=== PATIENT | female | born 1935 | race Caucasian/White ===

== ENCOUNTER → 2016-04-27 | Outpatient (CLI) | payer MEDICARE, OTHER ==
[~2016-04-27] MED LIST: /WARF25TA OR; B VITAMIN PO; CENTRUM SILVER PO; COENZYME Q 10 PO; COZA100T2 PO; FELO2.5T PO; FISHCAP PO; GLUCOSAMINE PO; LEVOTHYROXINE PO; PERCOCET OR; TYLE325T5 PO; VITAMIN D PO; [UNRECOGNIZED DRUG - REMARK] PO
== END ==
LOC: M RAD 10:58
PROVIDERS: ATTEND Internal Medicine Medical Oncology
DX: Z12.31 Encounter for screening mammogram for malignant neoplasm of breast (principal)

== ENCOUNTER → 2016-05-25 | Outpatient (REF) | payer MEDICARE, OTHER ==
[2016-05-25 13:48] LABS: ALBUMIN 3.4 GM/DL (3.2-5.2); ALBUMIN/GLOBULIN RATIO 1.03 (1.00-1.93); ALKALINE PHOSPHATASE 68 U/L (45-117); ALT/SGPT 20 U/L (12-78); ANION GAP 10 MEQ/L (8-16); AST/SGOT 15 U/L (15-37); BILIRUBIN,TOTAL 0.6 MG/DL (0.2-1.0); BLOOD UREA NITROGEN 15 MG/DL (7-18); CALCIUM LEVEL 8.9 MG/DL (8.8-10.2); CARBON DIOXIDE LEVEL 26 MEQ/L (21-32); CHLORIDE LEVEL 109 MEQ/L (98-107); CHOLESTEROL LEVEL 154 MG/DL (<200); CREATININE FOR GFR 0.74 MG/DL (0.55-1.02); GLOMERULAR FILTRATION RATE > 60.0 (>39); GLUCOSE, FASTING 90 MG/DL (83-110); POTASSIUM SERUM 4.2 MEQ/L (3.5-5.1); SODIUM LEVEL 145 MEQ/L (136-145); TOTAL PROTEIN 6.7 GM/DL (6.4-8.2); TRIGLYCERIDES LEVEL 151 MG/DL (<150)
== END ==
LOC: M SFHCPLAZ 07:58
PROVIDERS: ATTEND Internal Medicine
DX: I10 Essential (primary) hypertension (principal); E78.00 Pure hypercholesterolemia, unspecified

== ENCOUNTER → 2016-12-17 | Outpatient (REF) | payer MEDICARE, OTHER ==
[2016-12-17 13:58] LABS: ALBUMIN 3.5 GM/DL (3.2-5.2); ALBUMIN/GLOBULIN RATIO 1.03 (1.00-1.93); ALKALINE PHOSPHATASE 73 U/L (45-117); ALT/SGPT 22 U/L (12-78); ANION GAP 9 MEQ/L (8-16); AST/SGOT 12 U/L (15-37); BILIRUBIN,TOTAL 0.5 MG/DL (0.2-1.0); BLOOD UREA NITROGEN 15 MG/DL (7-18); CALCIUM LEVEL 8.7 MG/DL (8.8-10.2); CARBON DIOXIDE LEVEL 25 MEQ/L (21-32); CHLORIDE LEVEL 110 MEQ/L (98-107); CHOLESTEROL LEVEL 174 MG/DL (<200); CREATININE FOR GFR 0.73 MG/DL (0.55-1.02); GLOMERULAR FILTRATION RATE > 60.0 (>39); GLUCOSE, FASTING 90 MG/DL (83-110); MAGNESIUM LEVEL 2.2 MG/DL (1.8-2.4); POTASSIUM SERUM 4.5 MEQ/L (3.5-5.1); SODIUM LEVEL 144 MEQ/L (136-145); TOTAL PROTEIN 6.9 GM/DL (6.4-8.2); TRIGLYCERIDES LEVEL 189 MG/DL (<150)
== END ==
LOC: M SFHCPLAZ 08:10
PROVIDERS: ATTEND Internal Medicine
DX: I10 Essential (primary) hypertension (principal); M19.90 Unspecified osteoarthritis, unspecified site; E78.00 Pure hypercholesterolemia, unspecified; E03.9 Hypothyroidism, unspecified

== ENCOUNTER → 2017-05-03 | Outpatient (CLI) | payer MEDICARE, OTHER | LOC: M RAD 11:14 | DX: Z12.31 Encounter for screening mammogram for malignant neoplasm of breast (principal); Z85.3 Personal history of malignant neoplasm of breast | CPT/HCPCS: 77067 ==

== ENCOUNTER → 2017-06-16 | Outpatient (REF) | payer MEDICARE, OTHER ==
[2017-06-16 12:39] LABS: HEMATOCRIT 39.6 % (36.0-47.0); HEMOGLOBIN 13.3 g/dl (12.0-16.0); MEAN CORPUSCULAR HEMOGLOBIN 29.8 pg (27.0-33.0); MEAN CORPUSCULAR HGB CONC 33.6 g/dl (32.0-36.5); MEAN CORPUSCULAR VOLUME 88.6 fl (80.0-96.0); PLATELET COUNT, AUTOMATED 237 10^3/uL (150-450); RED BLOOD COUNT 4.47 10^6/uL (4.00-5.40); RED CELL DISTRIBUTION WIDTH 12.5 % (11.5-14.5)
[2017-06-16 13:17] LABS: ALBUMIN/GLOBULIN RATIO 1.25 (1.00-1.93); ALKALINE PHOSPHATASE 67 U/L (45-117); ALT/SGPT 31 U/L (12-78); ANION GAP 7 MEQ/L (8-16); AST/SGOT 34 U/L (7-37); BILIRUBIN,TOTAL 0.5 MG/DL (0.2-1.0); BLOOD UREA NITROGEN 17 MG/DL (7-18); CALCIUM LEVEL 8.9 MG/DL (8.8-10.2); CARBON DIOXIDE LEVEL 30 MEQ/L (21-32); CHLORIDE LEVEL 99 MEQ/L (98-107); CREATININE FOR GFR 1.07 MG/DL (0.55-1.30); GLOMERULAR FILTRATION RATE 52.7 (>39); GLUCOSE, FASTING 81 MG/DL (70-100); MAGNESIUM LEVEL 2.5 MG/DL (1.8-2.4); POTASSIUM SERUM 4.5 MEQ/L (3.5-5.1); SODIUM LEVEL 136 MEQ/L (136-145); TOTAL PROTEIN 7.2 GM/DL (6.4-8.2); URIC ACID 4.1 MG/DL (2.6-6.0)
== END ==
LOC: M SFHCPLAZ 10:23
DX: J30.9 Allergic rhinitis, unspecified (principal); I10 Essential (primary) hypertension
CPT/HCPCS: 83735

== ENCOUNTER → 2017-12-20 | Outpatient (REF) | payer MEDICARE, OTHER ==
[2017-12-20 20:14] LABS: ALBUMIN 3.8 GM/DL (3.2-5.2); ALKALINE PHOSPHATASE 69 U/L (45-117); ALT/SGPT 21 U/L (12-78); ANION GAP 6 MEQ/L (8-16); AST/SGOT 14 U/L (7-37); BILIRUBIN,TOTAL 0.6 MG/DL (0.2-1.0); BLOOD UREA NITROGEN 18 MG/DL (7-18); CALCIUM LEVEL 9.5 MG/DL (8.8-10.2); CARBON DIOXIDE LEVEL 27 MEQ/L (21-32); CHLORIDE LEVEL 109 MEQ/L (98-107); CREATININE FOR GFR 0.84 MG/DL (0.55-1.30); GLOMERULAR FILTRATION RATE > 60.0 (>32); LDL CHOLESTEROL 96 MG/DL (<100); MAGNESIUM LEVEL 2.4 MG/DL (1.8-2.4); POTASSIUM SERUM 4.8 MEQ/L (3.5-5.1); SODIUM LEVEL 142 MEQ/L (136-145); TOTAL PROTEIN 7.2 GM/DL (6.4-8.2); TRIGLYCERIDES LEVEL 162 MG/DL (<150)
[2017-12-21 02:53] LABS: ALBUMIN/GLOBULIN RATIO 1.12 (1.00-1.93); CHOLESTEROL LEVEL 168 MG/DL (<200); HDL CHOLESTEROL 40 MG/DL (>40); NON-HDL-C 128 MG/DL
[2017-12-21 03:01] LABS: GLUCOSE, FASTING 87 MG/DL (70-100)
== END ==
LOC: M SFHCPLAZ 09:40
DX: I10 Essential (primary) hypertension (principal); E78.00 Pure hypercholesterolemia, unspecified; E03.9 Hypothyroidism, unspecified
CPT/HCPCS: 83735

== ENCOUNTER → 2018-07-14 | Outpatient (REF) | payer MEDICARE, OTHER ==
[~2018-07-14] MED LIST changes: -/WARF25TA OR; +COUM1TAB18 OR; +OXYC1TAB23 OR; -PERCOCET OR
[2018-07-14 11:48] LABS: HEMATOCRIT 39.8 % (36.0-47.0); HEMOGLOBIN 12.7 g/dl (12.0-15.5); MEAN CORPUSCULAR HEMOGLOBIN 29.1 pg (27.0-33.0); MEAN CORPUSCULAR HGB CONC 31.9 g/dl (32.0-36.5); MEAN CORPUSCULAR VOLUME 91.3 fl (80.0-96.0); PLATELET COUNT, AUTOMATED 246 10^3/uL (150-450); RED BLOOD COUNT 4.36 10^6/uL (4.00-5.40); WHITE BLOOD COUNT 5.8 10^3/uL (4.0-10.0)
[2018-07-14 12:33] LABS: ALBUMIN 3.7 GM/DL (3.2-5.2); ALT/SGPT 18 U/L (12-78); BILIRUBIN,TOTAL 0.6 MG/DL (0.2-1.0); BLOOD UREA NITROGEN 17 MG/DL (7-18); CALCIUM LEVEL 8.7 MG/DL (8.8-10.2); CARBON DIOXIDE LEVEL 28 MEQ/L (21-32); CHLORIDE LEVEL 109 MEQ/L (98-107); CREATININE FOR GFR 0.69 MG/DL (0.55-1.30); GLOMERULAR FILTRATION RATE > 60.0 (>32); GLUCOSE, FASTING 89 MG/DL (70-100); MAGNESIUM LEVEL 2.1 MG/DL (1.8-2.4); SODIUM LEVEL 143 MEQ/L (136-145); TOTAL PROTEIN 7.2 GM/DL (6.4-8.2)
== END ==
LOC: M SFHCPLAZ 07:58
PROVIDERS: ATTEND Internal Medicine
DX: I10 Essential (primary) hypertension (principal); Z85.3 Personal history of malignant neoplasm of breast

== ENCOUNTER → 2021-01-06 | Outpatient (CLI) | payer MEDICARE, OTHER ==
[2021-01-06 13:37] LABS: HEMATOCRIT 40.6 % (36.0-47.0); MEAN CORPUSCULAR HEMOGLOBIN 29.7 pg (27.0-33.0); MEAN CORPUSCULAR VOLUME 92.9 fl (80.0-96.0); PLATELET COUNT, AUTOMATED 267 10^3/uL (150-450); RED BLOOD COUNT 4.37 10^6/uL (4.00-5.40); WHITE BLOOD COUNT 5.5 10^3/uL (4.0-10.0)
[2021-01-06 14:19] LABS: ALBUMIN 3.4 GM/DL (3.2-5.2); ALT/SGPT 17 U/L (12-78); BILIRUBIN,TOTAL 0.5 MG/DL (0.2-1.0); BLOOD UREA NITROGEN 16 MG/DL (7-18); CALCIUM LEVEL 9.4 MG/DL (8.8-10.2); CARBON DIOXIDE LEVEL 28 MEQ/L (21-32); CHLORIDE LEVEL 112 MEQ/L (98-107); CHOLESTEROL LEVEL 168 MG/DL (<200); CHOLESTEROL RISK RATIO 3.818 (<5); CREATININE FOR GFR 0.79 MG/DL (0.55-1.30); GLOMERULAR FILTRATION RATE > 60.0 (>32); GLUCOSE, FASTING 92 MG/DL (70-100); HDL CHOLESTEROL 44 MG/DL (>40); LDL CHOLESTEROL 93 MG/DL (<100); NON-HDL-C 124 MG/DL; POTASSIUM SERUM 4.4 MEQ/L (3.5-5.1); SODIUM LEVEL 144 MEQ/L (136-145); TRIGLYCERIDES LEVEL 155 MG/DL (<150)
== END ==
LOC: M PLALAB 09:20
PROVIDERS: ATTEND Internal Medicine
DX: I10 Essential (primary) hypertension (principal); E03.9 Hypothyroidism, unspecified; E78.00 Pure hypercholesterolemia, unspecified; Z85.3 Personal history of malignant neoplasm of breast

== ENCOUNTER → 2021-12-03 | Outpatient (CLI) | payer MEDICARE, OTHER ==
[2021-12-03 14:01] LABS: HEMATOCRIT 39.3 % (36.0-47.0); HEMOGLOBIN 12.8 g/dl (12.0-15.5); MEAN CORPUSCULAR HEMOGLOBIN 30.3 pg (27.0-33.0); MEAN CORPUSCULAR HGB CONC 32.6 g/dl (32.0-36.5); MEAN CORPUSCULAR VOLUME 93.1 fl (80.0-96.0); PLATELET COUNT, AUTOMATED 236 10^3/uL (150-450); RED BLOOD COUNT 4.22 10^6/uL (4.00-5.40); WHITE BLOOD COUNT 5.6 10^3/uL (4.0-10.0)
[2021-12-03 14:22] LABS: ALBUMIN 3.4 GM/DL (3.2-5.2); ALT/SGPT 18 U/L (12-78); BILIRUBIN,TOTAL 0.6 MG/DL (0.2-1.0); BLOOD UREA NITROGEN 18 MG/DL (7-18); CARBON DIOXIDE LEVEL 26 MEQ/L (21-32); CHLORIDE LEVEL 107 MEQ/L (98-107); CREATININE FOR GFR 0.81 MG/DL (0.55-1.30); GLOMERULAR FILTRATION RATE > 60.0 (>32); GLUCOSE, FASTING 100 MG/DL (70-100); POTASSIUM SERUM 5.2 MEQ/L (3.5-5.1); SODIUM LEVEL 138 MEQ/L (136-145); TOTAL PROTEIN 6.8 GM/DL (6.4-8.2)
[2021-12-03 14:48] LABS: MALB URINE SIEMENS 32.4 MG/L
[2021-12-03 15:59] LABS: HEMOGLOBIN A1c 5.5 %
== END ==
LOC: M PLALAB 10:29
PROVIDERS: ATTEND Internal Medicine Hematology
DX: I10 Essential (primary) hypertension (principal); M79.674 Pain in right toe(s)

== ENCOUNTER → 2023-08-11 | Outpatient (CLI) | payer MEDICARE ==
[2023-08-11 11:13] LABS: BASO # 0.1 10^3/uL (0.0-0.2); EOS # 0.2 10^3/uL (0.0-0.5); EOS % 2.8 % (0.0-3.0); HEMATOCRIT 40.2 % (36.0-47.0); LYMPH # 2.6 10^3/uL (1.5-5.0); LYMPH % 41.7 % (24.0-44.0); MEAN CORPUSCULAR HGB CONC 32.3 g/dl (32.0-36.5); MEAN CORPUSCULAR VOLUME 92.6 fl (80.0-96.0); MONO # 0.5 10^3/uL (0.0-0.8); MONO % 8.4 % (2.0-8.0); NEUTROPHILS # 2.8 10^3/uL (1.5-8.5); NEUTROPHILS % 45.8 % (36.0-66.0); PLATELET COUNT, AUTOMATED 273 10^3/uL (150-450); RED BLOOD COUNT 4.34 10^6/uL (4.00-5.40); WHITE BLOOD COUNT 6.2 10^3/uL (4.0-10.0)
[2023-08-11 11:34] LABS: C REACTIVE PROTEIN QUANTITATIV < 0.40 MG/DL (<1.0); CREATININE, URINE 131.1 MG/DL; MAU/CREAT RATIO 12.2 MCG/MG (0.0-30.0)
[2023-08-11 11:36] LABS: ALBUMIN 3.4 G/DL (3.2-5.2); ALKALINE PHOSPHATASE 65 U/L (46-116); ALT/SGPT 13 U/L (7.0-40); AST/SGOT 16 U/L (<34); BILIRUBIN,TOTAL 0.5 MG/DL (0.3-1.2); BLOOD UREA NITROGEN 16 MG/DL (9-23); CALCIUM LEVEL 8.8 MG/DL (8.3-10.6); CARBON DIOXIDE LEVEL 27 MMOL/L (20-31); CHLORIDE LEVEL 109 MMOL/L (98-107); CHOLESTEROL LEVEL 176 MG/DL (<200); CHOLESTEROL RISK RATIO 4.11 (<5); CREATININE FOR GFR 0.82 MG/DL (0.55-1.30); GLOMERULAR FILTRATION RATE > 60.0 (>32); GLUCOSE, FASTING 92 MG/DL (74-106); HDL CHOLESTEROL 42.8 MG/DL (>40); LDL CHOLESTEROL 106.8 MG/DL (<100); NON-HDL-C 133.2 MG/DL; POTASSIUM SERUM 4.6 MMOL/L (3.5-5.1); SODIUM LEVEL 140 MMOL/L (136-145); TOTAL PROTEIN 6.6 G/DL (5.7-8.2); TRIGLYCERIDES LEVEL 132 MG/DL (<150)
[2023-08-11 11:37] LABS: THYROID STIMULATING HORMONE 7.453 uIU/ML (0.55-4.78); TOTAL 25(OH) VITAMIN D 32.3 NG/ML (20.0-100.0)
[2023-08-11 11:38] LABS: FREE T4 1.11 NG/DL (0.89-1.76); HEMOGLOBIN A1c 5.2 % (4.0-6.0); VITAMIN B12 LEVEL 349 PG/ML (211-911)
== END ==
LOC: M PLALAB 08:37
PROVIDERS: ATTEND Internal Medicine Hematology
DX: I10 Essential (primary) hypertension (principal); Z79.899 Other long term (current) drug therapy

== ENCOUNTER 2023-12-22 16:15 | Inpatient (IN) | payer MEDICARE, OTHER ==
[~2023-12-22] VITALS: Ht 175.3 cm; Wt 85.1 kg
[2023-12-22 16:53] LABS: VENOUS BASE EXCESS -7.3 (-2.0-2.0); VENOUS HCO3 16.5 MMOL/L (23.0-27.0); VENOUS O2 SATURATION 66.9 % (60.0-80.0); VENOUS PH 7.374 UNITS (7.330-7.430); VENOUS TOTAL CO2 17.4 MMOL/L (24.0-28.0)
[2023-12-22 17:01] LABS: HEMATOCRIT 35.4 % (36.0-47.0); HEMOGLOBIN 12.2 g/dl (12.0-15.5); MEAN CORPUSCULAR HEMOGLOBIN 29.8 pg (27.0-33.0); MEAN CORPUSCULAR HGB CONC 34.5 g/dl (32.0-36.5); MEAN CORPUSCULAR VOLUME 86.6 fl (80.0-96.0); PLATELET COUNT, AUTOMATED 135 10^3/uL (150-450); RED BLOOD COUNT 4.09 10^6/uL (4.00-5.40); WHITE BLOOD COUNT 24.5 10^3/uL (4.0-10.0)
[2023-12-22] MEDS: ACETAMINOPHEN 650MG SUPP PR ONE (17:05)
[2023-12-22] MEDS: NS 1,000 ML IV ONE (17:06)
[2023-12-22] MEDS: NS IV ONE (17:15)
[2023-12-22] MEDS: LevoFLOXacin IV 750 MG in IV 1 EA IV ONE (17:19)
[2023-12-22 17:28] LABS: AMYLASE 25 U/L (30-118)
[2023-12-22 17:29] LABS: ALBUMIN 2.3 G/DL (3.2-5.2); ALKALINE PHOSPHATASE 86 U/L (46-116); ALT/SGPT 32 U/L (7.0-40); AST/SGOT 56 U/L (<34); BILIRUBIN,DIRECT 0.8 MG/DL (<0.4); BILIRUBIN,TOTAL 1.4 MG/DL (0.3-1.2); BLOOD UREA NITROGEN 44 MG/DL (9-23); CALCIUM LEVEL 8.6 MG/DL (8.3-10.6); CARBON DIOXIDE LEVEL 16 MMOL/L (20-31); CHLORIDE LEVEL 103 MMOL/L (98-107); CREATININE FOR GFR 1.96 MG/DL (0.55-1.30); GLOMERULAR FILTRATION RATE 25.7 (>32); GLUCOSE, FASTING 149 MG/DL (74-106); POTASSIUM SERUM 3.6 MMOL/L (3.5-5.1); SODIUM LEVEL 133 MMOL/L (136-145); TOTAL PROTEIN 5.9 G/DL (5.7-8.2)
[2023-12-22 17:35] LABS: PROCALCITONIN 36.12 ng/ml
[2023-12-22 17:36] LABS: EOSINOPHILS 2 % (0-3); LYMPHOCYTES 2 % (16-44); METAMYELOCYTES 1 % (0-0); MONOCYTES 2 % (0-5); NEUTROPHILS 86 % (28-66)
[2023-12-22 17:37] LABS: PLATELET ESTIMATE NORMAL (NORMAL)
[2023-12-22 17:39] LABS: C REACTIVE PROTEIN QUANTITATIV > 30.40 MG/DL (<1.0)
[2023-12-22 17:42] LABS: AMORPHOUS SEDIMENT MODERATE (NEGATIVE); APPEARANCE, URINE CLOUDY (CLEAR); BACTERIA, URINE AUTO NEGATIVE (NEGATIVE); BILIRUBIN, URINE AUTO NEGATIVE (NEGATIVE); BLOOD, URINE BLOOD 2+ (NEGATIVE); COLOR, URINE AMBER (YELLOW); GLUCOSE, URINE (UA) AUTO NEGATIVE (NEGATIVE); GRANULAR CAST, URINE AUTO 11 /LPF; KETONE, URINE AUTO TRACE mg/dL (NEGATIVE); LEUKOCYTE ESTERASE, URINE AUTO TRACE (NEGATIVE); MUCUS, URINE SMALL (NEGATIVE); NITRITE, URINE AUTO NEGATIVE (NEGATIVE); PROTEIN, URINE AUTO 2+ mg/dL (NEGATIVE); RBC, URINE AUTO 7 /HPF (0-3); SPECIFIC GRAVITY URINE AUTO 1.017 (1.002-1.035); SQUAMOUS EPITHELIAL CELL UR AU 2 /HPF (0-6); WBC, URINE AUTO 20 /HPF (0-3)
[2023-12-22 17:50] LABS: INR 1.55; PARTIAL THROMBOPLASTIN TIME 35.3 SECONDS (24.8-34.2); PROTHROMBIN TIME 18.1 SECONDS (12.5-14.5)
[2023-12-22] MEDS ORDERED: DICL50TA2 PO (18:05)
[2023-12-22] MEDS ORDERED: LOSA100T46 PO (18:05)
[2023-12-22] MEDS ORDERED: SYNT175T2 PO (18:08)
[2023-12-22] MEDS ORDERED: LEVO2TA PO (18:08)
[2023-12-22] MEDS ORDERED: med rec comment (18:09)
[2023-12-22] MEDS ORDERED: HOME MED LIST COMPLETE! XX SCH (18:15)
[2023-12-22] MEDS ORDERED: LEVALBUTEROL 1.25MG 0.5ML CONCENTRATE NEB INH PRN (19:30)
[2023-12-22] MEDS: LR 1,000 ML IV SCH (20:20)
[2023-12-22] MEDS: methylPREDNISolone 125MG 2ML VIAL IV ONE (20:21)
[2023-12-22] MEDS: ACETAMINOPHEN *IV* 500 MG in IV 1 EA IV ONE (20:21)
[2023-12-22 20:36] LABS: ABG HCO3 11.9 MMOL/L (22.0-26.0); ABG O2 SATURATION 95.7 % (95.0-99.0); ABG PARTIAL PRESSURE O2 72.3 mmHg (75.0-100.0); ABG STANDARD HCO3 17.2 MMOL/L. (22.0-26.0); ABG TOTAL CO2 12.4 MMOL/L (23.0-31.0); ABG pH (ARTERIAL) 7.474 UNITS (7.350-7.450)
[2023-12-22 20:40] LABS: ABG PARTIAL PRESSURE CO2 16.6 mmHg (35.0-45.0)
[2023-12-22 20:45] LABS: BASO # 0.2 10^3/uL (0.0-0.2); BASO % 0.7 % (0.0-1.0); EOS % 0.2 % (0.0-3.0); HEMATOCRIT 35.3 % (36.0-47.0); HEMOGLOBIN 12.1 g/dl (12.0-15.5); LYMPH # 0.6 10^3/uL (1.5-5.0); LYMPH % 2.3 % (24.0-44.0); MEAN CORPUSCULAR HEMOGLOBIN 29.9 pg (27.0-33.0); MEAN CORPUSCULAR HGB CONC 34.3 g/dl (32.0-36.5); MEAN CORPUSCULAR VOLUME 87.2 fl (80.0-96.0); MONO # 1.3 10^3/uL (0.0-0.8); MONO % 5.4 % (2.0-8.0); NEUTROPHILS # 21.7 10^3/uL (1.5-8.5); NEUTROPHILS % 89.2 % (36.0-66.0); PLATELET COUNT, AUTOMATED 105 10^3/uL (150-450); RED BLOOD COUNT 4.05 10^6/uL (4.00-5.40); WHITE BLOOD COUNT 24.3 10^3/uL (4.0-10.0)
[2023-12-22] MEDS: IPRATROPIUM 0.5MG/ALBUTEROL 2.5MG INH SOL UD 3ML (DUONEB) NEB SCH (21:13)
[2023-12-22 22:00] VITALS: BP 106/58; TEMP 101.4; O2SAT 98
[2023-12-22] MEDS ORDERED: ACETAMINOPHEN 650MG SUPP PR PRN (22:20)
[2023-12-22] MEDS ORDERED: FLUID PLACE HOLDER IV SCH (22:25)
[2023-12-22] MEDS ORDERED: VANCOMYCIN HCL IV SCH (22:25)
[2023-12-22] MEDS: DOCUSATE SODIUM 100MG CAPSULE PO SCH (22:40)
[2023-12-22 22:51] LABS: CALCIUM LEVEL 8.6 MG/DL (8.3-10.6); CREATININE FOR GFR 2.01 MG/DL (0.55-1.30); MAGNESIUM LEVEL 1.6 MG/DL (1.8-2.4); PHOSPHORUS LEVEL 2.8 MG/DL (2.4-5.1); POTASSIUM SERUM 3.4 MMOL/L (3.5-5.1)
[2023-12-22] MEDS: TRIAMCINOLONE ACETONIDE 0.025% 80GM CREAM TOP SCH (22:51)
[2023-12-22] MEDS: SODIUM BICARBONATE 75 MEQ in KCL 20MEQ IN 0.45NS 1000ML 1,000 ML IV SCH (22:52)
[2023-12-22] MEDS: LIDOCAINE 5% (LIDODERM) PATCH TD SCH (22:52)
[2023-12-22 23:00] VITALS: O2SAT 94
[2023-12-22] MEDS ORDERED: DEXTROSE 50% 50ML SYRINGE IV PRN (23:40)
[2023-12-22] MEDS ORDERED: GLUCOSE 4 GM CHEW PO PRN (23:40)
[2023-12-22] MEDS ORDERED: GLUCAGON INJ 1MG VIAL SC PRN (23:40)
[2023-12-22] MEDS: NYSTATIN 100,000 UNITS/GM TOPICAL PWD 15GM TOP SCH (23:45)
[2023-12-23] VITALS (42 sets, daily range): BP systolic 92–129; BP diastolic 52–65; TEMP 98–100.8; O2SAT 92–97
[2023-12-23] MEDS: VANCOMYCIN HCL 1,000 MG, VIAL MATE ADAPTER 1 EACH in D5W 250 ML IV ONE (00:06)
[2023-12-23] MEDS: MAG SULF 1GM/100ML (MAG RUN) 1 GM in IV 1 EA IV ONE (01:42)
[2023-12-23] MEDS ORDERED: ACETAMINOPHEN TAB 650MG DOSE (2X325MG) PO PRN (02:00)
[2023-12-23] MEDS ORDERED: TRIAMCINOLONE ACETONIDE 0.025% 80GM CREAM TOP PRN (02:10)
[2023-12-23 02:23] LABS: CALCIUM LEVEL 8.3 MG/DL (8.3-10.6); CREATININE FOR GFR 2.04 MG/DL (0.55-1.30); GLOMERULAR FILTRATION RATE 24.6 (>32); POTASSIUM SERUM 3.5 MMOL/L (3.5-5.1)
[2023-12-23 03:07] LABS: MAGNESIUM LEVEL 1.6 MG/DL (1.8-2.4)
[2023-12-23] MEDS: VANCOMYCIN HCL 750 MG, VIAL MATE ADAPTER 1 EACH in D5W 250 ML IV ONE (03:56)
[2023-12-23] MEDS: LEVOTHYROXINE 75MCG TABLET (0.075MG) PO SCH (04:50)
[2023-12-23] MEDS: LEVOTHYROXINE 100MCG TABLET (0.1MG) PO SCH (04:50)
[2023-12-23] MEDS: AZTREONAM 1 GM in D5W MINI-BAG PLUS 50 ML IV SCH (05:21)
[2023-12-23 07:10] LABS: HEMATOCRIT 34.5 % (36.0-47.0); HEMOGLOBIN 12.1 g/dl (12.0-15.5); MEAN CORPUSCULAR HEMOGLOBIN 29.7 pg (27.0-33.0); MEAN CORPUSCULAR HGB CONC 35.1 g/dl (32.0-36.5); MEAN CORPUSCULAR VOLUME 84.6 fl (80.0-96.0); RED BLOOD COUNT 4.08 10^6/uL (4.00-5.40); WHITE BLOOD COUNT 25.4 10^3/uL (4.0-10.0)
[2023-12-23 07:20] LABS: INR 1.8; PROTHROMBIN TIME 20.3 SECONDS (12.5-14.5)
[2023-12-23 07:43] LABS: PROCALCITONIN 40.49 ng/ml
[2023-12-23 07:48] LABS: ALBUMIN 1.8 G/DL (3.2-5.2); BILIRUBIN,TOTAL 2.4 MG/DL (0.3-1.2); CALCIUM LEVEL 8.7 MG/DL (8.3-10.6); CREATININE FOR GFR 1.94 MG/DL (0.55-1.30); POTASSIUM SERUM 3.5 MMOL/L (3.5-5.1); TOTAL PROTEIN 5.3 G/DL (5.7-8.2)
[2023-12-23] MEDS ORDERED: methylPREDNISolone 125MG 2ML VIAL IV SCH (08:00)
[2023-12-23] MEDS ORDERED: CEFEPIME HCL 2 GM in D5W MINI-BAG PLUS 50 ML IV SCH (08:15)
[2023-12-23 08:30] LABS: PLATELET COUNT, AUTOMATED 68 10^3/uL (150-450)
[2023-12-23] MEDS: LR 1,000 ML IV ONE (08:49)
[2023-12-23] MEDS ORDERED: HEPARIN SOD (PORCINE) 5000UNITS/ML 1ML VIAL/SYRINGE SC SCH (09:00)
[2023-12-23] MEDS ORDERED: CEFEPIME HCL 1 GM in D5W MINI-BAG PLUS 50 ML IV SCH (09:00)
[2023-12-23] MEDS ORDERED: MYCOLOG CREAM 15GM (NYSTATIN/TRIAMCINOLONE) TOP SCH (09:00)
[2023-12-23 10:30] LABS: CALCIUM LEVEL 8.4 MG/DL (8.3-10.6); CREATININE FOR GFR 1.85 MG/DL (0.55-1.30); GLOMERULAR FILTRATION RATE 27.5 (>32); POTASSIUM SERUM 3.5 MMOL/L (3.5-5.1)
[2023-12-23] MEDS: LEVOTHYROXINE 100MCG (0.1MG) 5ML SDV PF (SOLUTION FORM) IV SCH (10:49)
[2023-12-23] MEDS: AZITHROMYCIN INJ 500 MG, VIAL MATE ADAPTER 1 EACH in NS 250 ML IV SCH (10:50)
[2023-12-23] MEDS ORDERED: cefTRIAXone SOD 2 GM in D5W MINI-BAG PLUS 50 ML IV SCH (11:00)
[2023-12-23] MEDS: ACETAMINOPHEN *IV* 500 MG in IV 1 EA IV PRN (11:31)
[2023-12-23] MEDS: TRIAMCINOLONE ACET 0.1% OINTMENT 15GM TOP SCH (11:32)
[2023-12-23] MEDS: cefTRIAXone SOD 2 GM in D5W MINI-BAG PLUS 50 ML IV SCH (12:18)
[2023-12-23] MEDS: dexAMETHasone 20MG/5ML VIAL IV SCH (12:33)
[2023-12-23] MEDS: SODIUM BICARBONATE 75 MEQ in NS 0.45% 1,000 ML IV SCH (12:33)
[2023-12-23 12:36] LABS: VANCOMYCIN RANDOM 14.5 UG/ML
[2023-12-23] MEDS: VANCOMYCIN HCL 750 MG, VIAL MATE ADAPTER 1 EACH in D5W 250 ML IV SCH (13:30)
[2023-12-23] MEDS: AMPICILLIN SOD 2 GM in D5W MINI-BAG PLUS 100 ML IV SCH (14:46)
[2023-12-23 16:43] LABS: CREATININE FOR GFR 1.87 MG/DL (0.55-1.30); GLOMERULAR FILTRATION RATE 27.2 (>32); POTASSIUM SERUM 3.4 MMOL/L (3.5-5.1)
[2023-12-23] MEDS: KCL 10MEQ/100ML SWI (KRUN) 10 MEQ in IV 1 EA IV SCH (17:29)
[2023-12-23] MEDS: AMIODARONE HCL 150 MG in IV 1 EA IV ONE (17:29)
[2023-12-23] MEDS: AMIODARONE HCL 360 MG in IV 1 EA IV SCH ×2 (17:43→23:43)
[2023-12-23] MEDS ORDERED: IMMUNE GLOBULIN 10% 0 GM in IV 1 EA IV SCH (18:20)
[2023-12-23] MEDS: NS 0.45% IV SCH (19:59)
[2023-12-23] MEDS: SODIUM BICARBONATE IV SCH (19:59)
[2023-12-23] MEDS: POTASSIUM CHLORIDE IV SCH (19:59)
[2023-12-23 20:29] LABS: THYROID STIMULATING HORMONE 3.553 uIU/ML (0.55-4.78)
[2023-12-23] MEDS: IMMUNE GLOBULIN 10% 20 GM in IV 1 EA IV ONE (21:33)
[2023-12-23 22:00] LABS: ANTI-STREPTOLYSIN O QUANT 319.4 IU/ML (<195); IMMUNOGLOBULIN A 164.9 MG/DL (40-350)
[2023-12-24] VITALS (56 sets, daily range): BP systolic 85–143; BP diastolic 44–94; TEMP 98.5–101.5; O2SAT 92–100
[2023-12-24] MEDS: IMMUNE GLOBULIN 10% 5 GM in IV 1 EA IV ONE (00:26)
[2023-12-24] MEDS ORDERED: LEVOTHYROXINE 100MCG TABLET (0.1MG) PO SCH (06:00)
[2023-12-24] MEDS ORDERED: LevoFLOXacin IV 750 MG in IV 1 EA IV SCH (06:00)
[2023-12-24 06:55] LABS: BASO % 0.1 % (0.0-1.0); HEMATOCRIT 29.7 % (36.0-47.0); HEMOGLOBIN 10.5 g/dl (12.0-15.5); LYMPH % 4.4 % (24.0-44.0); MEAN CORPUSCULAR HEMOGLOBIN 29.2 pg (27.0-33.0); MEAN CORPUSCULAR HGB CONC 35.4 g/dl (32.0-36.5); MEAN CORPUSCULAR VOLUME 82.7 fl (80.0-96.0); MONO # 0.7 10^3/uL (0.0-0.8); MONO % 3.4 % (2.0-8.0); NEUTROPHILS # 19.6 10^3/uL (1.5-8.5); NEUTROPHILS % 90.2 % (36.0-66.0); RED BLOOD COUNT 3.59 10^6/uL (4.00-5.40); WHITE BLOOD COUNT 21.7 10^3/uL (4.0-10.0)
[2023-12-24 06:56] LABS: PLATELET COUNT, AUTOMATED 69 10^3/uL (150-450)
[2023-12-24 07:03] LABS: INR 1.82; PROTHROMBIN TIME 20.5 SECONDS (12.5-14.5)
[2023-12-24 07:25] LABS: ALBUMIN 1.8 G/DL (3.2-5.2); BILIRUBIN,TOTAL 1.1 MG/DL (0.3-1.2); CALCIUM LEVEL 8.3 MG/DL (8.3-10.6); CREATININE FOR GFR 1.93 MG/DL (0.55-1.30); GLOMERULAR FILTRATION RATE 26.2 (>32); MAGNESIUM LEVEL 2.1 MG/DL (1.8-2.4); POTASSIUM SERUM 3.8 MMOL/L (3.5-5.1); TOTAL PROTEIN 5.5 G/DL (5.7-8.2)
[2023-12-24 07:50] LABS: VANCOMYCIN RANDOM 15.3 UG/ML
[2023-12-24 07:54] LABS: FREE T4 0.96 NG/DL (0.89-1.76)
[2023-12-24 08:33] LABS: ABG BASE EXCESS -4.9 (-2.0-2.0); ABG HCO3 16.5 MMOL/L (22.0-26.0); ABG O2 SATURATION 97.3 % (95.0-99.0); ABG PARTIAL PRESSURE CO2 21.8 mmHg (35.0-45.0); ABG PARTIAL PRESSURE O2 87.1 mmHg (75.0-100.0); ABG STANDARD HCO3 20.4 MMOL/L. (22.0-26.0); ABG TOTAL CO2 17.2 MMOL/L (23.0-31.0); ABG pH (ARTERIAL) 7.497 UNITS (7.350-7.450)
[2023-12-24] MEDS: LEVOTHYROXINE 100MCG (0.1MG) 5ML SDV PF (SOLUTION FORM) IV SCH (08:45)
[2023-12-24] MEDS: FUROSEMIDE 40MG/4ML VIAL IV ONE (08:45)
[2023-12-24] MEDS: VANCOMYCIN HCL 1,000 MG, VIAL MATE ADAPTER 1 EACH in D5W 250 ML IV SCH (08:46)
[2023-12-24] MEDS ORDERED: AMIODARONE 150MG/3ML VIAL IVP STA (09:55)
[2023-12-24] MEDS: AMIODARONE HCL 150 MG in IV 1 EA IV ONE ×2 (10:12→15:44)
[2023-12-24] MEDS: FUROSEMIDE 100MG/10ML VIAL IV ONE (12:49)
[2023-12-24] MEDS: IMMUNE GLOBULIN 10% 40 GM in IV 1 EA IV SCH (14:02)
[2023-12-24] MEDS: HEPARIN SOD (PORCINE) 5000UNITS/ML 1ML VIAL/SYRINGE SQ SCH (14:28)
[2023-12-24] MEDS ORDERED: AMIODARONE 150MG/3ML VIAL IVP ONE (15:10)
[2023-12-24 17:25] LABS: HEMATOCRIT 31.4 % (36.0-47.0); MEAN CORPUSCULAR HEMOGLOBIN 29.4 pg (27.0-33.0); RED BLOOD COUNT 3.74 10^6/uL (4.00-5.40); WHITE BLOOD COUNT 23.8 10^3/uL (4.0-10.0)
[2023-12-24 17:26] LABS: PLATELET COUNT, AUTOMATED 63 10^3/uL (150-450)
[2023-12-24 17:39] LABS: ATYPICAL LYMPH 2 % (0-5); LYMPHOCYTES 6 % (16-44); NEUTROPHILS 89 % (28-66); PLATELET ESTIMATE DECREASED (NORMAL)
[2023-12-24] MEDS: IMMUNE GLOBULIN 10% 20 GM in IV 1 EA IV ONE (17:48)
[2023-12-24] MEDS ORDERED: VASOPRESSIN INJ 20UNITS/ML 1ML VIAL As Ordered ONE (18:05)
[2023-12-24] MEDS: VASOPRESSIN INJ 40 UNITS in NS 498 ML IV SCH (18:11)
[2023-12-24 18:13] LABS: ALBUMIN 1.9 G/DL (3.2-5.2); BILIRUBIN,TOTAL 0.9 MG/DL (0.3-1.2); CALCIUM LEVEL 8.5 MG/DL (8.3-10.6); CREATININE FOR GFR 2.3 MG/DL (0.55-1.30); GLOMERULAR FILTRATION RATE 21.4 (>32); MAGNESIUM LEVEL 2.2 MG/DL (1.8-2.4); PHOSPHORUS LEVEL 4.2 MG/DL (2.4-5.1); POTASSIUM SERUM 4.1 MMOL/L (3.5-5.1); TOTAL PROTEIN 6.7 G/DL (5.7-8.2)
[2023-12-24] MEDS ORDERED: METOPROLOL 5 MG/5 ML VIAL IV PRN (18:55)
[2023-12-25] VITALS (36 sets, daily range): BP systolic 86–141; BP diastolic 54–78; TEMP 100.2–100.3; O2SAT 95–99
[2023-12-25 01:18] LABS: ALBUMIN 1.6 G/DL (3.2-5.2); CALCIUM LEVEL 8.5 MG/DL (8.3-10.6); CREATININE FOR GFR 2.54 MG/DL (0.55-1.30); GLOMERULAR FILTRATION RATE 19.1 (>32); POTASSIUM SERUM 4.7 MMOL/L (3.5-5.1); TOTAL PROTEIN 6.9 G/DL (5.7-8.2)
[2023-12-25 04:44] LABS: HEMATOCRIT 31.6 % (36.0-47.0); HEMOGLOBIN 10.7 g/dl (12.0-15.5); MEAN CORPUSCULAR HEMOGLOBIN 29.3 pg (27.0-33.0); MEAN CORPUSCULAR HGB CONC 33.9 g/dl (32.0-36.5); MEAN CORPUSCULAR VOLUME 86.6 fl (80.0-96.0); RED BLOOD COUNT 3.65 10^6/uL (4.00-5.40); WHITE BLOOD COUNT 19.7 10^3/uL (4.0-10.0)
[2023-12-25 04:51] LABS: PLATELET COUNT, AUTOMATED 48 10^3/uL (150-450)
[2023-12-25 05:40] LABS: ALBUMIN 1.6 G/DL (3.2-5.2); CALCIUM LEVEL 8.6 MG/DL (8.3-10.6); CREATININE FOR GFR 2.81 MG/DL (0.55-1.30); POTASSIUM SERUM 4.9 MMOL/L (3.5-5.1); TOTAL PROTEIN 6.8 G/DL (5.7-8.2)
[2023-12-25 06:59] LABS: ATYPICAL LYMPH 1 % (0-5); LYMPHOCYTES 9 % (16-44); METAMYELOCYTES 1 % (0-0); MONOCYTES 6 % (0-5); MYELOCYTES 4 % (0-0); NEUTROPHILS 78 % (28-66); PLASMA CELL 1 % (0-0); PLATELET ESTIMATE MARKED DECREASE (NORMAL); POIKILOCYTOSIS 1+; POLYCHROMASIA 1+
[2023-12-25 07:00] LABS: ANISOCYTOSIS 1+
[2023-12-25 07:05] LABS: SCHISTOCYTES 1+
[2023-12-25] MEDS ORDERED: ONDANSETRON 4MG 2ML VIAL IV PRN (09:55)
[2023-12-25] MEDS ORDERED: SCOPOLAMINE 1MG TRANSDERMAL PATCH TOP PRN (09:55)
[2023-12-25] MEDS: MORPHINE 2 MG/ML 1ML VIAL IV PRN (10:09)
[2023-12-25] MEDS: LORazepam 2 MG/ML 1ML VIAL IV PRN (13:39)
[2023-12-26] MEDS ORDERED: ROCURONIUM BROMIDE 50MG/5ML VIAL ONE (04:49)
== END 2023-12-26 04:50 | disposition expired | DRG 871 ==
LOC: EDSEX 16:15 → M ED 16:15 → EDBD 16:15 → M ED INP 19:29 → M PCU 21:45 → M ICU 12-24 09:07 → M MSPAV 12-25 11:10
PROVIDERS: ADMIT Family Medicine; ATTEND Internal Medicine
PROC: 05HM33Z Insertion of Infusion Device into Right Internal Jugular Vein, Percutaneous Approach (ICD-10-PCS; principal; 2023-12-24)
DX: A40.0 Sepsis due to streptococcus, group A (principal); G92.9 Unspecified toxic encephalopathy; G93.41 Metabolic encephalopathy; J96.00 Acute respiratory failure, unspecified whether with hypoxia or hypercapnia; R65.21 Severe sepsis with septic shock; K72.00 Acute and subacute hepatic failure without coma; I33.0 Acute and subacute infective endocarditis; N17.9 Acute kidney failure, unspecified; E87.3 Alkalosis; D68.9 Coagulation defect, unspecified; E87.20 Acidosis, unspecified; E03.9 Hypothyroidism, unspecified; E78.5 Hyperlipidemia, unspecified; K21.9 Gastro-esophageal reflux disease without esophagitis; I12.9 Hypertensive chronic kidney disease with stage 1 through stage 4 chronic kidney disease, or unspecified chronic kidney disease; N18.9 Chronic kidney disease, unspecified; E87.6 Hypokalemia; I48.91 Unspecified atrial fibrillation; D69.6 Thrombocytopenia, unspecified; E78.00 Pure hypercholesterolemia, unspecified; R01.1 Cardiac murmur, unspecified; I46.9 Cardiac arrest, cause unspecified; Z88.0 Allergy status to penicillin; Z88.8 Allergy status to other drugs, medicaments and biological substances; Z79.899 Other long term (current) drug therapy; Z96.641 Presence of right artificial hip joint; Z85.3 Personal history of malignant neoplasm of breast; M19.90 Unspecified osteoarthritis, unspecified site; Z85.42 Personal history of malignant neoplasm of other parts of uterus